=== PATIENT | female | born 1995 ===

== ENCOUNTER 2024-10-25 05:36 | Day surgery (SDC) | payer OTHER ==
[2024-10-25] MEDS ORDERED: LIDOCAINE HCL 1%/EPINEPHRINE 20ML VIAL IJ ONE (07:18)
[2024-10-25] MEDS ORDERED: CEFTRIAXONE SODIUM 2,000 MG VIAL ONE (07:18)
[2024-10-25] MEDS ORDERED: METRONIDAZOLE/SODIUM CHLORIDE 500 MG/100 ML PIGGYBACK IV ONE (07:18)
[2024-10-25] MEDS ORDERED: POVIDONE-IODINE 118 ML BOTT TOP ONE (07:18)
[2024-10-25] MEDS ORDERED: BUPIVACAINE HCL/MPF 0.5% 30ML VIAL ONE (07:19)
[2024-10-25] MEDS ORDERED: HEMOSTATIC MATRIX 1 KIT KIT TOP ONE (07:20)
[2024-10-25] MEDS ORDERED: DIBUCAINE 30 GM TUBE ONE (08:22)
[2024-10-25] MEDS ORDERED: BUPIVACAINE LIPOSOME/PF 266 MG/20 ML VIAL IJ ONE (08:22)
== END 2024-10-25 12:35 | disposition home or self-care (01) ==
LOC: CIR.AMB 05:36
PROVIDERS: ATTEND Colon & Rectal Surgery
DX: K60.1 Chronic anal fissure (principal); K62.4 Stenosis of anus and rectum; S31.000A Unspecified open wound of lower back and pelvis without penetration into retroperitoneum, initial encounter; Z91.013 Allergy to seafood; Z91.018 Allergy to other foods